=== PATIENT | female | born 1970 | race Caucasian/White ===

== ENCOUNTER 2016-12-25 11:34 | Emergency (ER) | payer OTHER, MEDICAID ==
--- NOTE | 2016-12-25 14:23 | EDDOCDS ---
Physician Documentation [facility] Name: Elizabeth Ford Age: 46 yrs Sex: Female : 1970 Arrival Date: 12/25/2016 Time: 11:34 Bed 30 Private MD: NO PRIMARY PHYSICIAN, . Disposition: 12/25/16 13:43 Discharged to Home/Self Care. Impression: Acute sinusitis. - Condition is Stable. - Discharge Instructions: Sinusitis, Adult. - Prescriptions for Fluticasone 50 mcg/actuation Nasal [place], Suspension - inhale 2 spray by INTRANASAL route once daily; 1 bottle. - Medication Reconciliation, Local Pharmacy Hours form. - [facility]; When: Call to arrange an appointment; Reason: To establish care. - Problem is new. - Symptoms are unchanged. - Notes: Keep hydrated Use Tylenol severe cold and flu (or similar) to help control symptoms STOP SMOKING Return to the ED/UC if not improved by Friday, running fever, purulent (pus) nasal drainage Historical: - Allergies: vasaline; Advil; Neosporin (fhy-gaxrg-oqumwdex); - Home Meds: 1. Seroquel 200 mg Oral tab 1 tab once daily (Last dose: 12/24/2016 21:00) 2. Zoloft 100 mg Oral tab (Last dose: 12/25/2016 08:00) 3. Tylenol 325 mg Oral tab 2 tabs every 3 hours (Last dose: 12/24/2016) - PMHx: Depression; - PSHx: Tubal ligation; - Social history: Smoking status: Patient uses tobacco products, current every day smoker. Patient/guardian denies using alcohol, street drugs, No barriers to communication noted, The patient speaks fluent Bangladeshi, Speaks appropriately for age. - Family history: No immediate family members are acutely ill. - : The pt / caregiver states he / she is not on anticoagulants. Home medication list is obtained from the patient. - Exposure Risk Screening:: None identified. 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 8 in. (172.72 cm); 14:22 BP 128 / 84; Pulse 74; Resp 17; Temp 98.2(O); Pulse Ox 99% on R/A; mb9 11:36 Body Mass Index 32.84 (97.98 kg, 172.72 cm) elp MDM: 12:[address] [place] Payment Agreement was scanned into [employer] and attached to record. 13:57 Financial registration complete. Signatures: Carol Byrd, Reg Reg lg Rain Dias, Martha Ruano, RN RN ttb Renato LopesRN RN mb9 The chart was reviewed and I authenticate all verbal orders and agree with the evaluation and treatment provided.Attachments: 12:[address] [facility] Payment Agreement lg MTDD
--- NOTE | 2016-12-25 14:23 | EDDOCDS ---
Nurse's Notes [facility] Name: Elizabeth Ford Age: 46 yrs Sex: Female : 1970 Arrival Date: 12/25/2016 Time: 11:34 Bed 30 Private MD: NO PRIMARY PHYSICIAN, . Diagnosis: Acute sinusitis Presentation: 12/25 11:38 Presenting complaint: Patient states: left ear pain and sinus congestion, headache x2 ttb days. Adult Sepsis Screening: The patient does not have new or worsening altered mentation. Patient's respiratory rate is less than 22. Systolic blood pressure is greater than 100. Patient has a qSOFA score of 0- Negative Sepsis Screen. Suicide/Homicide risk assessment- the patient denies having any suicidal and/or homicidal ideations and does not present with any other emotional, behavioral or mental health complaints. 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 Transition of care: patient was not received from another setting of care. 11:38 Acuity: OCTAVIO Level 5 ttb 11:38 Method Of Arrival: Walkin/Carried/Asstd ttb Triage Assessment: 11:40 General: Appears in no apparent distress, well nourished, well groomed, Behavior is ttb appropriate for age, cooperative, pleasant. Pain: Location: headache 6/10. Pt Declines HIV testing. Neurological: Level of Consciousness is awake, alert. EENT: Reports nasal congestion nasal discharge. Cardiovascular: Chest pain is denied. Respiratory: No deficits noted. Airway is patent Denies cough, shortness of breath. Derm: Skin is normal. 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 Seroquel 200 mg Oral tab 1 tab once daily (Last dose: 12/24/2016 21:00) 2. Zoloft 100 mg Oral tab (Last dose: 12/25/2016 08:00) 3. Tylenol 325 mg Oral tab 2 tabs every 3 hours (Last dose: 12/24/2016) - PMHx: Depression; - PSHx: Tubal ligation; - Social history: Smoking status: Patient uses tobacco products, current every day smoker. Patient/guardian denies using alcohol, street drugs, No barriers to communication noted, The patient speaks fluent Vietnamese, Speaks appropriately for age. - Family history: No immediate family members are acutely ill. - : The pt / caregiver states he / she is not on anticoagulants. Home medication list is obtained from the patient. - Exposure Risk Screening:: None identified. Screenin:45 Screening information is obtained from the patient. Fall risk: No risks identified. mb9 Assistance ADL's: requires no assistance with activities of daily living. Abuse/DV Screen: The patient / caregiver reports he/she is: not in a situation that causes fear, pain or injury. Nutritional screening: No deficits noted. Advance Directives: There is no active DNR order. home support is adequate. Assessment: 13:45 General: Appears in no apparent distress, Behavior is fussy. Pain: Location: forehead mb9 Pain currently is 2 out of 10 on a pain scale. Respiratory: Airway is patent Respiratory effort is even, unlabored, Breath sounds are clear bilaterally. Vital Signs: 11:36 BP 134 / 78; Pulse 110; Resp 18; Temp 98.9; Pulse Ox 98% ; Weight 97.98 kg; Height 5 elp ft. 8 in. (172.72 cm); 14:22 BP 128 / 84; Pulse 74; Resp 17; Temp 98.2(O); Pulse Ox 99% on R/A; mb9 11:36 Body Mass Index 32.84 (97.98 kg, 172.72 cm) [facility] Vitals: 11:36 Log In Time: December 25, 2016 at 11:34. [facility] ED Course: 11:35 Patient visited by Sweetie Ramirez PCA. elp 11:35 NO PRIMARY PHYSICIAN, . is Private Physician. elp 11:35 Patient moved to Waiting elp 11:36 Patient visited by Sweetie Ramirez PCA. elp 11:36 Patient moved to Pre RCE elp 11:38 Triage Initiated ttb 12:27 Patient name changed from Elizabeth\S\\S\Bc Ford\S\ to Elizabeth\S\M\S\Bc Ford. EDMS 12:31 COUNTS INCLUDE 234 BEDS AT THE [facility] Payment Agreement was scanned into [employer] and attached to record. lg 12:33 Patient name changed from Elizabeth\S\M\S\Bc Ford\S\ to Elizabeth\S\ \S\Ford. EDMS 13:14 Rain Dias FNP is [facility]. le 13:14 Patient moved to 30 [facility] 13:22 Patient visited by Rain Dias FNP. le 13:22 Patient visited by Rain Dias FNP. le 13:43 [facility] is Referral Physician. le 13:45 The patient / caregiver is instructed regarding the plan of care and ED course. mb9 13:45 No IV's were initiated during this patient's visit. No procedures done that require mb9 assistance. Order Results: There are currently no results for this order. Outcome: 13:43 Discharge ordered by Provider. le 13:45 Discharge Assessment: Patient awake, alert and oriented x 3. No cognitive and/or mb9 functional deficits noted. Patient verbalized understanding of disposition instructions. patient administered narcotics - no. The following High Risk Discharge criteria are identified: None. Discharged to home ambulatory, with significant other. Condition: good Condition: stable Condition: improved. Discharge instructions given to patient, Instructed on discharge instructions, follow up and referral plans. medication usage, Demonstrated understanding of instructions, medications, Pt was receptive of discharge instructions/ teaching. No special radiology studies were completed. Property :Personal belongings accompany Pt. 14:22 Patient left the ED. mb9 Signatures: Dispatcher [employer] EDMI Jody Hannah, RN Carol Elizabeth mcp, Bin Reg lg Rain Dias FNP FNP le Conner, Teresa, RN RN ttb Patchen, Erin, CUSTOMS COMPLIANCE DIRECTOR CUSTOMS COMPLIANCE DIRECTOR elRenato Velasquez RN RN mb9 MTDD
--- NOTE | 2016-12-27 15:23 | EDDOCDS ---
Nurse's Notes [facility] Name: Elizabeth Ford Age: 46 yrs Sex: Female : 1970 Arrival Date: 12/25/2016 Time: 11:34 Bed 30 Private MD: NO PRIMARY PHYSICIAN, . Diagnosis: Acute sinusitis Presentation: 12/25 11:38 Presenting complaint: Patient states: left ear pain and sinus congestion, headache x2 ttb days. Adult Sepsis Screening: The patient does not have new or worsening altered mentation. Patient's respiratory rate is less than 22. Systolic blood pressure is greater than 100. Patient has a qSOFA score of 0- Negative Sepsis Screen. Suicide/Homicide risk assessment- the patient denies having any suicidal and/or homicidal ideations and does not present with any other emotional, behavioral or mental health complaints. Status: Patient is not a litigation services manager or dependent. Transition of care: patient was not received from another setting of care. 11:38 Acuity: OCTAVIO Level 5 ttb 11:38 Method Of Arrival: Walkin/Carried/Asstd ttb Triage Assessment: 11:40 General: Appears in no apparent distress, well nourished, well groomed, Behavior is ttb appropriate for age, cooperative, pleasant. Pain: Location: headache 6/10. Pt Declines HIV testing. Neurological: Level of Consciousness is awake, alert. EENT: Reports nasal congestion nasal discharge. Cardiovascular: Chest pain is denied. Respiratory: No deficits noted. Airway is patent Denies cough, shortness of breath. Derm: Skin is normal. 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 Seroquel 200 mg Oral tab 1 tab once daily (Last dose: 12/24/2016 21:00) 2. Zoloft 100 mg Oral tab (Last dose: 12/25/2016 08:00) 3. Tylenol 325 mg Oral tab 2 tabs every 3 hours (Last dose: 12/24/2016) - PMHx: Depression; - PSHx: Tubal ligation; - Social history: Smoking status: Patient uses tobacco products, current every day smoker. Patient/guardian denies using alcohol, street drugs, No barriers to communication noted, The patient speaks fluent Surinamese, Speaks appropriately for age. - Family history: No immediate family members are acutely ill. - : The pt / caregiver states he / she is not on anticoagulants. Home medication list is obtained from the patient. - Exposure Risk Screening:: None identified. Screenin:45 Screening information is obtained from the patient. Fall risk: No risks identified. mb9 Assistance ADL's: requires no assistance with activities of daily living. Abuse/DV Screen: The patient / caregiver reports he/she is: not in a situation that causes fear, pain or injury. Nutritional screening: No deficits noted. Advance Directives: There is no active DNR order. home support is adequate. Assessment: 13:45 General: Appears in no apparent distress, Behavior is fussy. Pain: Location: forehead mb9 Pain currently is 2 out of 10 on a pain scale. Respiratory: Airway is patent Respiratory effort is even, unlabored, Breath sounds are clear bilaterally. Vital Signs: 11:36 BP 134 / 78; Pulse 110; Resp 18; Temp 98.9; Pulse Ox 98% ; Weight 97.98 kg; Height 5 elp ft. 8 in. (172.72 cm); 14:22 BP 128 / 84; Pulse 74; Resp 17; Temp 98.2(O); Pulse Ox 99% on R/A; mb9 11:36 Body Mass Index 32.84 (97.98 kg, 172.72 cm) [facility] Vitals: 11:36 Log In Time: December 25, 2016 at 11:34. [facility] ED Course: 11:35 Patient visited by Sweetie Ramirez PCA. elp 11:35 NO PRIMARY PHYSICIAN, . is Private Physician. elp 11:35 Patient moved to Waiting elp 11:36 Patient visited by Sweetie Ramirez PCA. elp 11:36 Patient moved to Pre RCE elp 11:38 Triage Initiated ttb 12:27 Patient name changed from Elizabeth\S\\S\Bc Ford\S\ to Elizabeth\S\M\S\Bc Ford. EDMS 12:31 [facility] Payment Agreement was scanned into [email or web address] and attached to record. lg 12:33 Patient name changed from Elizabeth\S\M\S\Bc Ford\S\ to Elizabeth\S\ \S\Ford. EDMS 13:14 [facility] le 13:14 Patient moved to 30 [facility] 13:22 Patient visited by Rain Dias FNP. le 13:22 Patient visited by Rain Dias FNP. le 13:43 [facility] is Referral Physician. le 13:45 The patient / caregiver is instructed regarding the plan of care and ED course. mb9 13:45 No IV's were initiated during this patient's visit. No procedures done that require mb9 assistance. 12/26 14:24 T-Sheet-- Draft Copy was scanned into [email or web address] and attached to record. gb Order Results: There are currently no results for this order. Outcome: 12/25 13:43 Discharge ordered by Provider. le 13:45 Discharge Assessment: Patient awake, alert and oriented x 3. No cognitive and/or mb9 functional deficits noted. Patient verbalized understanding of disposition instructions. patient administered narcotics - no. The following High Risk Discharge criteria are identified: None. Discharged to home ambulatory, with significant other. Condition: good Condition: stable Condition: improved. Discharge instructions given to patient, Instructed on discharge instructions, follow up and referral plans. medication usage, Demonstrated understanding of instructions, medications, Pt was receptive of discharge instructions/ teaching. No special radiology studies were completed. Property :Personal belongings accompany Pt. 14:22 Patient left the ED. mb9 Signatures: Dispatcher [facility] EDMD Jody Hannah RN RN [facility] Arleth Onofre, Reg Reg gb Carol Byrd, Reg Reg lg Rain Dias FNP FNP le Conner, Teresa, RN RN ttb Patchen, Erin, LAY BROTHER LAY BROTHER elp Renato Lopes,BIGG RN mb9 Chart Complete MTDD
--- NOTE | 2016-12-27 15:23 | EDDOCDS ---
Physician Documentation [facility] Name: Elizabeth Ford Age: 46 yrs Sex: Female : 1970 Arrival Date: 12/25/2016 Time: 11:34 Bed 30 Private MD: NO PRIMARY PHYSICIAN, . Disposition: 12/25/16 13:43 Discharged to Home/Self Care. Impression: Acute sinusitis. - Condition is Stable. - Discharge Instructions: Sinusitis, Adult. - Prescriptions for Fluticasone 50 mcg/actuation Nasal [place], Suspension - inhale 2 spray by INTRANASAL route once daily; 1 bottle. - Medication Reconciliation, Local Pharmacy Hours form. - Follow up: [facility]; When: Call to arrange an appointment; Reason: To establish care. - Problem is new. - Symptoms are unchanged. - Notes: Keep hydrated Use Tylenol severe cold and flu (or similar) to help control symptoms STOP SMOKING Return to the ED/UC if not improved by Friday, running fever, purulent (pus) nasal drainage Historical: - Allergies: vasaline; Advil; Neosporin (uay-ceejy-ttytbalf); - Home Meds: 1. Seroquel 200 mg Oral tab 1 tab once daily (Last dose: 12/24/2016 21:00) 2. Zoloft 100 mg Oral tab (Last dose: 12/25/2016 08:00) 3. Tylenol 325 mg Oral tab 2 tabs every 3 hours (Last dose: 12/24/2016) - PMHx: Depression; - PSHx: Tubal ligation; - Social history: Smoking status: Patient uses tobacco products, current every day smoker. Patient/guardian denies using alcohol, street drugs, No barriers to communication noted, The patient speaks fluent French, Speaks appropriately for age. - Family history: No immediate family members are acutely ill. - : The pt / caregiver states he / she is not on anticoagulants. Home medication list is obtained from the patient. - Exposure Risk Screening:: None identified. 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 8 in. (172.72 cm); 14:22 BP 128 / 84; Pulse 74; Resp 17; Temp 98.2(O); Pulse Ox 99% on R/A; mb9 11:36 Body Mass Index 32.84 (97.98 kg, 172.72 cm) elp MDM: 12:31 [place] Payment Agreement was scanned into [employer] and attached to record. lg 13:57 Financial registration complete. lg 12/26 14:24 T-Sheet-- Draft Copy was scanned into [employer] and attached to record. gb Signatures: Arleth Onofre, Reg Reg gb Carol Byrd, Reg Reg lg Rain Dias, DATACAP DEVELOPER DATACAP DEVELOPER Martha Enriquez RN RN Renato TaylorRN RN mb9 The chart was reviewed and I authenticate all verbal orders and agree with the evaluation and treatment provided.Attachments: 12/25 12:31 [facility] Payment Agreement lg 12/26 14:24 T-Sheet-- Draft Copy gb Chart Complete MTDD
--- NOTE | 2016-12-27 15:23 | EDDOCDS ---
Physician Documentation [facility] Name: Elizabeth Ford Age: 46 yrs Sex: Female : 1970 Arrival Date: 12/25/2016 Time: 11:34 Bed 30 Private MD: NO PRIMARY PHYSICIAN, . Disposition: 12/25/16 13:43 Discharged to Home/Self Care. Impression: Acute sinusitis. - Condition is Stable. - Discharge Instructions: Sinusitis, Adult. - Prescriptions for Fluticasone 50 mcg/actuation Nasal [place], Suspension - inhale 2 spray by INTRANASAL route once daily; 1 bottle. - Medication Reconciliation, Local Pharmacy Hours form. - Follow up: [facility]; When: Call to arrange an appointment; Reason: To establish care. - Problem is new. - Symptoms are unchanged. - Notes: Keep hydrated Use Tylenol severe cold and flu (or similar) to help control symptoms STOP SMOKING Return to the ED/UC if not improved by Friday, running fever, purulent (pus) nasal drainage Historical: - Allergies: vasaline; Advil; Neosporin (wmc-kjfzn-vvmguprh); - Home Meds: 1. Seroquel 200 mg Oral tab 1 tab once daily (Last dose: 12/24/2016 21:00) 2. Zoloft 100 mg Oral tab (Last dose: 12/25/2016 08:00) 3. Tylenol 325 mg Oral tab 2 tabs every 3 hours (Last dose: 12/24/2016) - PMHx: Depression; - PSHx: Tubal ligation; - Social history: Smoking status: Patient uses tobacco products, current every day smoker. Patient/guardian denies using alcohol, street drugs, No barriers to communication noted, The patient speaks fluent Azerbaijani, Speaks appropriately for age. - Family history: No immediate family members are acutely ill. - : The pt / caregiver states he / she is not on anticoagulants. Home medication list is obtained from the patient. - Exposure Risk Screening:: None identified. 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 8 in. (172.72 cm); 14:22 BP 128 / 84; Pulse 74; Resp 17; Temp 98.2(O); Pulse Ox 99% on R/A; mb9 11:36 Body Mass Index 32.84 (97.98 kg, 172.72 cm) elp MDM: 12:31 [place] Payment Agreement was scanned into [employer] and attached to record. lg 13:57 Financial registration complete. lg 12/26 14:24 T-Sheet-- Draft Copy was scanned into [employer] and attached to record. gb Signatures: Arleth Onofre, Reg Reg gb Carol Byrd, Reg Reg lg Rain Dias, RISK CONTROL FIELD REPRESENTATIVE RISK CONTROL FIELD REPRESENTATIVE Martha Enriquez RN RN Renato TaylorRN RN mb9 The chart was reviewed and I authenticate all verbal orders and agree with the evaluation and treatment provided.Attachments: 12/25 12:31 [facility] Payment Agreement lg 12/26 14:24 T-Sheet-- Draft Copy gb Chart Complete MTDD
== END 2016-12-25 14:22 | disposition home or self-care (01) ==
LOC: M ED 11:34
DX: J32.9 Chronic sinusitis, unspecified (principal); F32.9 Major depressive disorder, single episode, unspecified; Z79.899 Other long term (current) drug therapy; Z88.3 Allergy status to other anti-infective agents; Z88.6 Allergy status to analgesic agent; Z91.09 Other allergy status, other than to drugs and biological substances; F17.210 Nicotine dependence, cigarettes, uncomplicated

== ENCOUNTER → 2017-07-16 | Outpatient (REF) | payer OTHER, MEDICAID ==
[2017-07-16 18:46] LABS: ALBUMIN 3.6 GM/DL (3.2-5.2); ALBUMIN/GLOBULIN RATIO 1.06 (1.00-1.93); ALKALINE PHOSPHATASE 80 U/L (45-117); ALT/SGPT 19 U/L (12-78); ANION GAP 11 MEQ/L (8-16); AST/SGOT 13 U/L (15-37); BILIRUBIN,TOTAL 0.3 MG/DL (0.2-1.0); BLOOD UREA NITROGEN 10 MG/DL (7-18); CALCIUM LEVEL 8.4 MG/DL (8.5-10.1); CARBON DIOXIDE LEVEL 24 MEQ/L (21-32); CHLORIDE LEVEL 108 MEQ/L (98-107); CHOLESTEROL LEVEL 230 MG/DL (<200); CREATININE FOR GFR 0.92 MG/DL (0.55-1.02); GLOMERULAR FILTRATION RATE > 60.0 (>58); GLUCOSE, FASTING 92 MG/DL (70-105); POTASSIUM SERUM 4.1 MEQ/L (3.5-5.1); SODIUM LEVEL 143 MEQ/L (136-145); TRIGLYCERIDES LEVEL 180 MG/DL (<150)
[2017-07-16 18:56] LABS: BASO % 0.6 % (0.0-1.0); EOS # 0.1 K/mm3 (0.0-0.50); EOS % 1.6 % (0.0-3.0); LARGE UNSTAINED CELL # 0.1 K/mm3 (0.0-0.4); LARGE UNSTAINED CELL % 1.7 % (0.0-4.0); LYMPH # 2.6 K/mm3 (1.5-4.5); LYMPH % 38.9 % (24.0-44.0); MEAN CORPUSCULAR HEMOGLOBIN 31.3 pg (27.0-33.0); MEAN CORPUSCULAR HGB CONC 33.8 g/dl (32.0-36.5); MEAN CORPUSCULAR VOLUME 92.7 fl (80.0-96.0); MONO # 0.3 K/mm3 (0.0-0.8); MONO % 4.9 % (0.0-5.0); NEUTROPHILS # 3.5 K/mm3 (1.8-7.7); NEUTROPHILS % 52.3 % (36.0-66.0); PLATELET COUNT, AUTOMATED 242 k/mm3 (150-450); RED CELL DISTRIBUTION WIDTH 12.6 % (11.5-14.5); WHITE BLOOD COUNT 6.8 K/mm3 (4.0-10.0)
== END ==
LOC: M LAB REF 17:27
PROVIDERS: ATTEND Family Medicine Addiction Medicine
DX: Z00.01 Encounter for general adult medical examination with abnormal findings (principal)

== ENCOUNTER → 2017-08-19 | Outpatient (REF) | payer OTHER, MEDICAID | LOC: M LAB REF 17:41 | PROVIDERS: ATTEND Family Medicine Addiction Medicine | DX: Z12.4 Encounter for screening for malignant neoplasm of cervix (principal) ==

== ENCOUNTER 2017-11-17 11:27 | Emergency (ER) | payer OTHER, MEDICAID ==
[~2017-11-17] VITALS: Ht 170.2 cm; Wt 90.9 kg
[2017-11-17] MEDS ORDERED: QUET1TAB9 (11:36)
[2017-11-17] MEDS ORDERED: SERT-138 (11:36)
[2017-11-17 13:15] VITALS: BP 142/70
--- NOTE | 2017-11-17 13:24 | REP ---
Left foot series: Four views. History: Left foot pain after trauma. Findings: Four views of the left foot show Achilles and plantar calcaneal spurring. There is diffuse soft tissue swelling over the forefoot dorsally and laterally. There is moderate osteoarthritis at the first MTP joint with subcortical cyst formation and well established spur formation in addition to joint space narrowing. No fracture or other acute bony abnormality is seen. Impression: No acute fracture seen. Heel spurring. Moderate first MTP joint osteoarthritis. Signed by Frederic Christianson MD 11/17/2017 04:12 P
== END 2017-11-17 13:19 | disposition home or self-care (01) ==
LOC: M ED 11:27
DX: S90.32XA Contusion of left foot, initial encounter (principal); X50.9XXA Other and unspecified overexertion or strenuous movements or postures, initial encounter; Y92.009 Unspecified place in unspecified non-institutional (private) residence as the place of occurrence of the external cause; Y93.01 Activity, walking, marching and hiking; Y99.8 Other external cause status; F43.10 Post-traumatic stress disorder, unspecified; F41.9 Anxiety disorder, unspecified; F33.9 Major depressive disorder, recurrent, unspecified; F17.210 Nicotine dependence, cigarettes, uncomplicated; Z79.899 Other long term (current) drug therapy; Z88.8 Allergy status to other drugs, medicaments and biological substances

== ENCOUNTER → 2020-12-19 | Outpatient (CLI) | payer OTHER, MEDICAID ==
[~2020-12-19] MED LIST: QUET200T2; SERT-138
--- NOTE | 2020-12-19 10:24 | REPMRS ---
Patient History The patient states she has not had a clinical breast exam in over a year. Baseline Mammogram Patient is postmenopausal. No known family history of cancer. 3D TOMOSYNTHESIS WAS PERFORMED. [facility] lifetime risk for breast cancer is 7.5%. [place] breast density b. Digital Woman Screen Mammo: December 19, 2020 - Exam #: [id number] Bilateral CC and MLO view(s) were taken. Technologist: Afsaneh Muñoz, Technologist No prior studies available for comparison. FINDINGS: The breast tissue is heterogeneously dense. This may lower the sensitivity of mammography. There has been no change in the appearance of the mammogram from the prior studies. There is a moderate amount of residual fibroglandular tissue which is fairly symmetric. There is no interval development of dominant mass, areas of architectural distortion, or clustered microcalcification typical of malignancy. Assessment: BI-RADS/ACR category 1 mammogram. Negative Mammogram. Recommendation Routine screening mammogram in 1 year (for women over age 40). This mammogram was interpreted with the aid of an FDA-approved computer-aided dectection system. Electronically Signed By: Ebenezer Perera MD 12/19/20 1024
== END ==
LOC: M WHC 09:15
PROVIDERS: ATTEND Family Medicine Addiction Medicine
DX: Z12.31 Encounter for screening mammogram for malignant neoplasm of breast (principal)

== ENCOUNTER → 2020-12-26 | Outpatient (REF) | payer OTHER, MEDICAID ==
[2020-12-26 14:02] LABS: ALBUMIN 3.8 GM/DL (3.2-5.2); ALT/SGPT 25 U/L (12-78); BILIRUBIN,TOTAL 0.4 MG/DL (0.2-1.0); BLOOD UREA NITROGEN 12 MG/DL (7-18); CALCIUM LEVEL 9.3 MG/DL (8.5-10.1); CARBON DIOXIDE LEVEL 31 MEQ/L (21-32); CHLORIDE LEVEL 104 MEQ/L (98-107); CHOLESTEROL LEVEL 236 MG/DL (<200); CHOLESTEROL RISK RATIO 3.806 (<5); CREATININE FOR GFR 0.72 MG/DL (0.55-1.30); GLOMERULAR FILTRATION RATE > 60.0 (>51); GLUCOSE, FASTING 92 MG/DL (70-100); HDL CHOLESTEROL 62 MG/DL (>40); LDL CHOLESTEROL 141 MG/DL (<100); NON-HDL-C 174 MG/DL; POTASSIUM SERUM 4.3 MEQ/L (3.5-5.1); SODIUM LEVEL 138 MEQ/L (136-145); TOTAL PROTEIN 7.2 GM/DL (6.4-8.2); TRIGLYCERIDES LEVEL 164 MG/DL (<150)
== END ==
LOC: M LAB REF 12:41
PROVIDERS: ATTEND Family Medicine Addiction Medicine
DX: Z00.00 Encounter for general adult medical examination without abnormal findings (principal)

== ENCOUNTER → 2025-03-01 | Outpatient (CLI) | payer OTHER, MEDICAID | LOC: M RAD 09:48 | PROVIDERS: ATTEND Student in an Organized Health Care Education/Training Program | DX: J44.9 Chronic obstructive pulmonary disease, unspecified (principal) ==

== ENCOUNTER → 2025-03-01 | Outpatient (CLI) | payer OTHER, MEDICAID | LOC: M CARPUL 09:46 | PROVIDERS: ATTEND Student in an Organized Health Care Education/Training Program | DX: J44.9 Chronic obstructive pulmonary disease, unspecified (principal) ==

== ENCOUNTER → 2025-03-16 | Outpatient (REF) | payer OTHER, MEDICAID ==
[2025-03-16 12:48] LABS: HEMATOCRIT 42.3 % (36.0-47.0); HEMOGLOBIN 13.6 g/dl (12.0-15.5); MEAN CORPUSCULAR HEMOGLOBIN 29.1 pg (27.0-33.0); MEAN CORPUSCULAR HGB CONC 32.2 g/dl (32.0-36.5); MEAN CORPUSCULAR VOLUME 90.4 fl (80.0-96.0); PLATELET COUNT, AUTOMATED 280 10^3/uL (150-450); RED BLOOD COUNT 4.68 10^6/uL (4.00-5.40); WHITE BLOOD COUNT 8.4 10^3/uL (4.0-10.0)
[2025-03-16 12:51] LABS: ALBUMIN 3.7 G/DL (3.2-5.2); ALKALINE PHOSPHATASE 98 U/L (35-104); ALT/SGPT 33 U/L (7.0-40); AST/SGOT 23 U/L (<34); BILIRUBIN,TOTAL 0.3 MG/DL (0.3-1.2); BLOOD UREA NITROGEN 11 MG/DL (9-23); CALCIUM LEVEL 8.8 MG/DL (8.5-10.1); CARBON DIOXIDE LEVEL 27 MMOL/L (20-31); CHLORIDE LEVEL 103 MMOL/L (98-107); CHOLESTEROL LEVEL 219 MG/DL (<200); CHOLESTEROL RISK RATIO 3.95 (<5); CREATININE FOR GFR 0.73 MG/DL (0.55-1.30); GLOMERULAR FILTRATION RATE > 90.0 (>51); GLUCOSE, FASTING 99 MG/DL (60-100); HDL CHOLESTEROL 55.4 MG/DL (>40); LDL CHOLESTEROL 132.8 MG/DL (<100); NON-HDL-C 163.6 MG/DL; POTASSIUM SERUM 4.6 MMOL/L (3.5-5.1); SODIUM LEVEL 136 MMOL/L (136-145); THYROID STIMULATING HORMONE 1.918 uIU/ML (0.55-4.78); TOTAL 25(OH) VITAMIN D 7.5 NG/ML (20.0-100.0); TOTAL PROTEIN 7.1 G/DL (5.7-8.2); TRIGLYCERIDES LEVEL 154 MG/DL (<150)
[2025-03-16 13:12] LABS: HEMOGLOBIN A1c 5.5 % (4.0-6.0)
== END ==
LOC: M LAB REF 12:00
PROVIDERS: ATTEND Student in an Organized Health Care Education/Training Program
DX: J44.9 Chronic obstructive pulmonary disease, unspecified (principal); Z68.41 Body mass index [BMI] 40.0-44.9, adult